=== PATIENT | male | born 1980 | race Caucasian/White ===

== ENCOUNTER 2020-09-08 16:32 | Emergency (ER) | payer OTHER, SELFPAY ==
--- NOTE | ~2020-09-08 | XR_ITS ---
XR finger 2nd LT min 2V DATE: 09/08/2020 16:56 INDICATION: Injury. Laceration left index finger TECHNIQUE: 3 views COMPARISON: None FINDINGS: No fracture, dislocation, periosteal reaction or bone destruction. No radiopaque soft tissu e foreign body. Soft tissue irregularities consistent with reported laceration. IMPRESSION: Soft tissue laceration,: No fracture or dislocation Reviewed, dictated and finalized at location A. 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
[2020-09-08 16:37] VITALS: BP 147/112; PULSE 77; RESP 18; TEMP 36.6; O2SAT 98
[2020-09-08] MEDS: TETANUS,DIPHTHERIA,AC PERTUSSIS ADULT (0.5 ML) BOOSTRIX IM (16:52)
--- NOTE | 2020-09-08 17:01 | ED.GENADULT ---
HPI - General Adult General Chief complaint: Wound/Laceration Stated complaint: Laceration Left Finger Time Seen by Provider: 09/08/20 16:33 Source: patient Mode of arrival: ambulatory Limitations: no limitations History of Present Illness HPI narrative: Patient is a 40-year-old male who presents to emergency department for evaluation of laceration to the left index finger that occurred just prior to arrival patient cut the finger on a sharp piece of metal and then slammed his finger down and anger patient notes aching pain worse with activity and movement patient notes his tetanus is not up-to-date patient has not been seen for this complaint presents per private vehicle from urgent care Related Data Allergies Allergy/AdvReac Type Severity Reaction Status Date / Time nkda Allergy Mild Unknown Uncoded 09/08/20 16:40 Review of Systems Review of Systems: All systems reviewed & are unremarkable except as noted in HPI and below PMFSH Social History Social History (Updated 09/08/20 @ 17:03 by Dong Walker PA-C) Smoking status: Never smoker Exam Narrative: Exam Narrative: GENERAL: Well-appearing, well-nourished, and in no acute distress. HEAD: Normocephalic, atraumatic. EYES: PERRLA and EOMI. ENT: Nares clear, no rhinorrhea or epistaxis. Mucous membranes moist. EXTREMITIES: Normal range of motion. No edema. SKIN: Warm, dry, no rash. Patient with laceration along the lateral aspect of runs the majority of the length of the finger NEURO: No focal deficits. Alert and oriented x3. Cranial nerves II through XII grossly intact. Neurovascularly intact. Motor and sensory intact in the finger PSYCH: Normal mood and affect. Course Course Emergency Course: Patient's laceration was closed in the emergency department patient was splinted and given hand surgery follow-up Vital Signs Vital signs: Vital Signs Temperature 97.8 F 09/08/20 16:37 Pulse Rate 77 09/08/20 16:37 Respiratory Rate 18 09/08/20 16:37 Blood Pressure 147/112 H 09/08/20 16:37 Pulse Oximetry 98 09/08/20 16:37 Temperature 97.8 F 09/08/20 16:37 Pulse Rate 77 09/08/20 16:37 Respiratory Rate 18 09/08/20 16:37 Blood Pressure 147/112 H 09/08/20 16:37 Pulse Oximetry 98 09/08/20 16:37 Procedures Laceration Laceration 1: Date: 09/08/20 Time: 18:22 Site: upper extremity Side (If applicable): left Size (cm): 3 Description: irregular (Patient with the irregular contused laceration running from the distal phalanx to the mid phalanx with swelling and contusion of the digit) Depth: simple, single layer Local Anesthetic: lidocaine 1% Pre-repair: wound explored, irrigated and irrigated extensively ====== Skin Level ====== Skin layer closed with: nylon Size (cm): 4-0 Number of sutures: 9 ====== Subcutaneous Layer ====== ====== Muscle Layer ====== ====== Tendon Layer ====== Dressing: Patient's wound was prepped with Shur-Clens scrub with pressure irrigation digital block performed with 1% lidocaine patient with swelling and contusion of the finger was approximated as well as possible using 4-0 nylon 9 sutures were placed neurovascularly intact pre and post procedure patient was dressed with antibiotic ointment nonadhesive 4 x 4 Coban and metal finger splint was applied Laceration 2: Date: 09/08/20 Time: 18:23 Site: upper extremity Side (If applicable): left Size (cm): 1 Description: irregular Depth: simple, single layer Local Anesthetic: lidocaine 1% Pre-repair: irrigated and irrigated extensively ====== Skin Level ====== Size (cm): 4-0 Number of sutures: 3 ====== Subcutaneous Layer ====== ====== Muscle Layer ====== ====== Tendon Layer ====== Dressing: Antibiotic ointment nonadhesive 4 x 4 and Coban placed post procedure Medical D
== END 2020-09-08 18:49 | disposition home or self-care (01) ==
PROVIDERS: Emergency Provider Emergency Medicine; Referring Provider Internal Medicine
DX: S61.211A Laceration without foreign body of left index finger without damage to nail, initial encounter (principal); Z23 Encounter for immunization; W26.8XXA Contact with other sharp object(s), not elsewhere classified, initial encounter
CPT/HCPCS: 12002; 73140; 90471; 90715; 99283